=== PATIENT | female | born 1990 | race Caucasian/White ===

== ENCOUNTER 2017-08-15 20:39 | Emergency (ER) | payer OTHER ==
[~2017-08-15] VITALS: Ht 154.9 cm; Wt 55.8 kg
[~2017-08-15 20:39] MED LIST: CELEBREX50 MG PO; LO LOESTRIN FE1 EACH PO; METFORMIN HCL500 MG PO; ULTRACET
[2017-08-16] MEDS ORDERED: BACTRIM DS TAB1 EACH PO (03:38)
[2017-08-16] MEDS ORDERED: KETO10TA2 PO (03:38)
[2017-08-16] MEDS ORDERED: ZANTAC300 MG PO (03:40)
[2017-08-16] MEDS ORDERED: INTESTINEX680 M1 PO (03:40)
== END 2017-08-16 03:49 | disposition home or self-care (01) ==
LOC: ER 20:39
DX: K52.89 Other specified noninfective gastroenteritis and colitis (principal); N39.0 Urinary tract infection, site not specified